=== PATIENT | female | born 1960 | race Caucasian/White ===

== ENCOUNTER 2016-08-11 20:10 | Emergency (ER) | payer BC ==
[~2016-08-11] VITALS: Ht 167.6 cm; Wt 105.5 kg
[~2016-08-11 20:10] MED LIST: ATV5X PO; LORA10TA5 PO; NAPR1TAB9 PO; PRM625 PO; RIZA1TAB11 PO; TPM25 PO; ZLF/100 PO
[2016-08-11 20:12] VITALS: TEMP 36.6; Ht 167.6 cm; Wt 105.5 kg
[2016-08-11] MEDS ORDERED: KETOROLAC TROMETHAMINE 30 MG/ML VIAL IV STA (20:59)
[2016-08-11] MEDS ORDERED: DiphenhydrAMINE HCL 50 MG/ML VIAL IV STA (20:59)
[2016-08-11] MEDS ORDERED: METHYLPREDNISOLONE 125 MG VIAL IV STA (20:59)
[2016-08-11] MEDS ORDERED: DIPH25CA5 PO (21:09)
[2016-08-11] MEDS ORDERED: OPTIRAY 320 IV PRN (21:15)
[2016-08-11 21:20] LABS: BASO % 0.4 %; BASO ABS # 0.03 K/uL (0-0.2); COMPLETE YES; EOS % 11.5 %; HEMATOCRIT 37.7 % (37-47); IG% 0.1 %; LYMPH % 19.1 %; LYMPH ABS # 1.41 K/uL (1.2-3.4); MEAN CELL VOLUME 87.5 fL (80-100); MEAN CORPUSCULAR HEMOGLOBIN 29.2 pg (25-34); MEAN CORPUSCULAR HGB CONC 33.4 g/dl (32-36); MONO % 8.9 %; PLATELET COUNT 218 K/uL (130-400); RED BLOOD COUNT 4.31 M/uL (4.2-5.4); WHITE BLOOD COUNT 7.39 K/uL (4.8-10.8)
[2016-08-11 21:35] LABS: BUN/CREATININE RATIO 24.6 (10-20); CREATININE 0.72 mg/dl (0.60-1.20)
[2016-08-11 21:39] LABS: URINE APPEARANCE TURBID (CLEAR); URINE BILIRUBIN NEG (NEG); URINE COLOR YELLOW; URINE EPITHELIAL CELL AUTO 20-30 /lpf (0-5); URINE NITRITE NEG (NEG); URINE PH 7.5 (4.5-7.5); URINE SPECIFIC GRAVITY 1.019 (1.000-1.030); UROBILINOGEN NEG (NEG)
[2016-08-11 21:40] LABS: MANUAL MICROSCOPIC REQUIRED? NO; REVIEW REQ? NO
--- NOTE | 2016-08-11 22:00 | DIAGNOSTIC IMAGING REPORT ---
CT OF THE HEAD WITHOUT CONTRAST CLINICAL HISTORY: Headache. Preorbital edema. COMPARISON STUDY: MRI of the brain June 25, 2013. TECHNIQUE: Helical axial images of the head were obtained without IV contrast. Automated exposure control was utilized for the study. FINDINGS: No acute intracranial hemorrhage, midline shift or mass effect is present. Ventricular system is normal. Basilar cisterns are patent. There are no extra-axial collections. Veronica-white differentiation is maintained. There are no findings to suggest acute dural sinus thrombosis or acute territorial infarct. There are no calvarial abnormalities. Visualized portions of the sinuses and mastoid air cells are clear. Bilateral periorbital edema is better depicted on the maxillofacial CT. IMPRESSION: No acute intracranial findings. Electronically signed by: Keegan Lee M.D. 08/11/2016 9:59 PM Dictated Date/Time: 08/11/2016 9:55 PM
--- NOTE | 2016-08-11 22:08 | DIAGNOSTIC IMAGING REPORT ---
MAXILLOFACIAL CT WITH CONTRAST CLINICAL HISTORY: Headache with preorbital edema. TECHNIQUE: Helical axial images of the face were obtained following intravenous injection of 99 cc of Optiray 320 IV. Sagittal and coronal reconstructions were viewed. COMPARISON STUDY: MRI of the brain June 25, 2013. FINDINGS: There is mild bilateral periorbital preseptal soft tissue swelling. There is no postseptal component. There is no rim-enhancing fluid collection to suggest an orbit. This extends from the infraorbital region to the forehead. The globes are intact. Sinuses are clear. Major drainage pathways for the sinuses are patent. Mastoid air cells are clear. There are no significant osseous abnormalities. Major vasculature of the upper neck is patent. Epiglottis is normal. Parotid and submandibular glands are normal. Visualized portions of the intracranial contents are unremarkable. The superior ophthalmic veins are not dilated. IMPRESSION: 1. Mild periorbital soft tissue swelling. No postseptal component. No abscess. 2. No significant paranasal sinus disease. Patent major drainage pathways. Electronically signed by: Keegan Lee M.D. 08/11/2016 10:07 PM Dictated Date/Time: 08/11/2016 9:59 PM
[2016-08-11 22:19] LABS: CALCIUM 8.3 mg/dl (8.5-10.1)
[2016-08-11] MEDS ORDERED: PRED50TA PO (23:30)
[2016-08-12 00:04] VITALS: BP 111/67; PULSE 71; O2SAT 98
--- NOTE | 2016-08-12 02:08 | EMERGENCY ROOM VISIT NOTE ---
History Report prepared by Dianaibdebra: Tevin Scott Under the Supervision of: Dr. Forrest Shankar D.O. First contact with patient: 20:31 Chief Complaint: HEADACHE Stated Complaint: HEADACHE,SWELLING AROUND THE EYES History of Present Illness The patient is a 56 year old female who presents to the Emergency Room with complaints of a worsening headache starting earlier this afternoon. She reports the discomfort as a 3/10 in severity. The patient reports that she has a history of migraines starting 20 years ago. She notes that this feels like her typical migraines but not nearly as bad. The patient denies any pain with movement in her eyes. She states that she took an over the counter sinus medication, but denies any relief. The patient states that she went to the bathroom and noticed a swelling between her eyes. She reports that she tried to sleep to relieve her pain but denies any change in symptoms. The patient reports the pain is worsening with breathing. She states that a week ago she had a sore throat and cough but admits it has resolved. The patient states that she started to have rhinorrhea starting yesterday. The patient denies change in vision, fevers, ear pain, ringing in ears, chest pain, shortness of breath, nausea, vomiting, diarrhea, pain with urination, edema to other body parts. Source of History: patient Onset: this afternoon Position: head Symptom Intensity: 3/10 Quality: ache Timing: worsening Modifying Factors (Worsening): breathing Associated Symptoms: + sorethroat, + cough, No fevers Note: The patient admits to rhinorrhea. Review of Systems See HPI for pertinent positives & negatives. A total of 10 systems reviewed and were otherwise negative. Past Medical & Surgical Surgical Problems: (1) H/O: hysterectomy (2) Hx of cholecystectomy Family History Arthritis Diabetes mellitus FH: heart disease FHx: Crohn's disease FHx: gallbladder disease Hypertension Social History Smoking Status: Never Smoker Alcohol Use: occasionally Marital Status: Housing Status: lives with significant other Occupation Status: employed Current/Historical Medications Scheduled Diphenhydramine Hcl (Benadryl), 25 MG PO QPM Estrogens, Conjugated (Premarin), 0.625 MG PO DAILY Naproxen (Aleve), 440 MG PO HS Prednisone (Prednisone), 50 MG PO DAILY Sertraline HCl (Sertraline HCl), 100 MG PO DAILY Topiramate (Topiramate), 50 MG PO HS Scheduled PRN Lorazepam (Lorazepam), 0.5 MG PO DAILY PRN for Anxiety Rizatriptan Benzoate (Rizatriptan Benzoate), 10 MG PO UD PRN for Migraine Allergies Coded Allergies: Penicillins (Verified Allergy, Unknown, 12/14/14) Physical Exam Vital Signs Date Time Temp Pulse Resp B/P (MAP) Pulse Ox O2 Delivery O2 Flow Rate FiO2 08/12/16 00:04 71 16 111/67 98 08/11/16 22:11 60 18 109/77 99 Room Air 08/11/16 20:12 36.6 75 16 130/84 96 Room Air Physical Exam GENERAL: Sitting up in bed, alert, well appearing, well nourished, no distress, non-toxic EYE EXAM: normal conjunctiva, PERRL and EOM's intact. Swelling on bridge of nose. Swelling on proximal portion of upper eyelids. OROPHARYNX: no exudate, no erythema, lips, buccal mucosa, and tongue normal and mucous membranes are moist NECK: supple, no nuchal rigidity, no adenopathy, non-tender, negative Brudzinski LUNGS: Clear to auscultation. Normal chest wall mechanics HEART: no murmurs, S1 normal and S2 normal ABDOMEN: abdomen soft, non-tender, normo-active bowel sounds, no masses, no rebound or guarding. BACK: Back is symmetrical on inspection and there is no deformity, no midline tenderness, no CVA tenderness. SKIN: Multiple small skin ulcers on upper and lower extremities. no bruising UPPER EXTREMITIES: upper extremities are grossly normal. LOWER EXTREMITIES: No pitting edema. NEURO EXAM: Normal sensorium, cranial nerves II-XII intact, normal speech, no weakness of arms, no weakness of legs. No drift. Finger to nose intact. Medical Decision & Procedures ER Provider Diagnostic Interpretation: Radiology results as stated below per my review and the radiologist's interpretation: CT OF THE HEAD WITHOUT CONTRAST CLINICAL HISTORY: Headache. Preorbital edema. COMPARISON STUDY: MRI of the brain June 25, 2013. TECHNIQUE: Helical axial images of the head were obtained without IV contrast. Automated exposure control was utilized for the study. FINDINGS: No acute intracranial hemorrhage, midline shift or mass effect is present. Ventricular system is normal. Basilar cisterns are patent. There are no extra-axial collections. Veronica-white differentiation is maintained. There are no findings to suggest acute dural sinus thrombosis or acute territorial infarct. There are no calvarial abnormalities. Visualized portions of the sinuses and mastoid air cells are clear. Bilateral periorbital edema is better depicted on the maxillofacial CT. IMPRESSION: No acute intracranial findings. Electronically signed by: Keegan Lee M.D. 08/11/2016 9:59 PM Dictated Date/Time: 08/11/2016 9:[address] WITH CONTRAST CLINICAL HISTORY: Headache with preorbital edema. TECHNIQUE: Helical axial images of the face were obtained following intravenous injection of 99 cc of Optiray 320 IV. Sagittal and coronal reconstructions were viewed. COMPARISON STUDY: MRI of the brain June 25, 2013. FINDINGS: There is mild bilateral periorbital preseptal soft tissue swelling. There is no postseptal component. There is no rim-enhancing fluid collection to suggest an orbit. This extends from the infraorbital region to the forehead. The globes are intact. Sinuses are clear. Major drainage pathways for the sinuses are patent. Mastoid air cells are clear. There are no significant osseous abnormalities. Major vasculature of the upper neck is patent. Epiglottis is normal. Parotid and submandibular glands are normal. Visualized portions of the intracranial contents are unremarkable. The superior ophthalmic veins are not dilated. IMPRESSION: 1. Mild periorbital soft tissue swelling. No postseptal component. No abscess. 2. No significant paranasal sinus disease. Patent major drainage pathways. Electronically signed by: Keegan Lee M.D. 08/11/2016 10:07 PM Dictated Date/Time: 08/11/2016 9:59 PM Laboratory Results 08/11/16 21:10 Red Blood Count 4.31, Mean Corpuscular Volume 87.5, Mean Corpuscular Hemoglobin 29.2, Mean Corpuscular Hemoglobin Concent 33.4, Mean Platelet Volume 9.0, Neutrophils (%) (Auto) 60.0, Lymphocytes (%) (Auto) 19.1, Monocytes (%) (Auto) 8.9, Eosinophils (%) (Auto) 11.5, Basophils (%) (Auto) 0.4, Neutrophils # (Auto ) 4.43, Lymphocytes # (Auto) 1.41, Monocytes # (Auto) 0.66, Eosinophils # (Auto ) 0.85, Basophils # (Auto) 0.03 08/11/16 21:10 Test 08/11/16 21:10 08/11/16 21:28 White Blood Count 7.39 K/uL (4.8-10.8) Red Blood Count 4.31 M/uL (4.2-5.4) Hemoglobin 12.6 g/dL (12.0-16.0) Hematocrit 37.7 % (37-47) Mean Corpuscular Volume 87.5 fL (80-100) Mean Corpuscular Hemoglobin 29.2 pg (25-34) Mean Corpuscular Hemoglobin Concent 33.4 g/dl (32-36) Platelet Count 218 K/uL (130-400) Mean Platelet Volume 9.0 fL (7.4-10.4) Neutrophils (%) (Auto) 60.0 % Lymphocytes (%) (Auto) 19.1 % Monocytes (%) (Auto) 8.9 % Eosinophils (%) (Auto) 11.5 % Basophils (%) (Auto) 0.4 % Neutrophils # (Auto) 4.43 K/uL (1.4-6.5) Lymphocytes # (Auto) 1.41 K/uL (1.2-3.4) Monocytes # (Auto) 0.66 K/uL (0.11-0.59) Eosinophils # (Auto) 0.85 K/uL (0-0.5) Basophils # (Auto) 0.03 K/uL (0-0.2) RDW Standard Deviation 41.8 fL (36.4-46.3) RDW Coefficient of Variation 12.9 % (11.5-14.5) Immature Granulocyte % (Auto) 0.1 % Immature Granulocyte # (Auto) 0.01 K/uL (0.00-0.02) Anion Gap 8.0 mmol/L (3-11) Est Creatinine Clear Calc Drug Dose 109.6 ml/min Estimated GFR () 110.0 Estimated GFR (Non- 94.9 BUN/Creatinine Ratio 24.6 (10-20) Calcium Level 8.3 mg/dl (8.5-10.1) Urine Color YELLOW Urine Appearance TURBID (CLEAR) Urine pH 7.5 (4.5-7.5) Urine Specific [place] 1.019 (1.000-1.030) Urine Protein NEG (NEG) Urine Glucose (UA) NEG (NEG) Urine Ketones NEG (NEG) Urine Occult Blood NEG (NEG) Urine Nitrite NEG (NEG) Urine Bilirubin NEG (NEG) Urine Urobilinogen NEG (NEG) Urine Leukocyte Esterase TRACE (NEG) Urine WBC (Auto) 1-5 /hpf (0-5) Urine RBC (Auto) 0-4 /hpf (0-4) Urine Hyaline Casts (Auto) 1-5 /lpf (0-5) Urine Epithelial Cells (Auto) 20-30 /lpf (0-5) Urine Bacteria (Auto) NEG (NEG) Laboratory results per my review. Medications Administered Medications (Trade) Dose Ordered Sig/Miriam Route Start Time Stop Time Status Last Admin Dose Admin Diphenhydramine HCl (Benadryl Inj) 50 mg NOW STAT IV 08/11/16 20:59 08/11/16 21:01 DC 08/11/16 21:20 50 MG Ketorolac Tromethamine (Toradol Inj) 30 mg NOW STAT IV 08/11/16 20:59 08/11/16 21:01 DC 08/11/16 21:20 30 MG Methylprednisolone Sodium Succinate (Solu-Medrol IV) 125 mg NOW STAT IV 08/11/16 20:59 08/11/16 21:01 DC 08/11/16 21:20 125 MG ED Course ED COURSE: Vital signs were reviewed and showed hypertension. The patients medical record was reviewed The above diagnostic studies were performed and reviewed. ED treatments and interventions as stated above. 2034: The patient was evaluated in room A02. A complete history and physical examination was performed. 2058: Solu-Medrol IV 125 mg IV, Toradol Injection 30 mg IV, Benadryl Injection 50 mg IV. 2114: Ioversol 100 ml IV. 0000: Upon reevaluation, the patient is feeling better. I discussed the findings and the treatment plan with the patient. She verbalizes agreement and understanding. She was discharged home. Medical Decision Differential Diagnosis includes but is not limited to headache, tension headache , cluster headache, migraine, subarachnoid hemorrhage, meningitis, mass, central venous thrombus, concussion, trauma and epidural/subdural hemorrhage. Patient is a 56-year-old female who presents the ER for swelling in the pre- orbital region which started earlier today. She also admits to a headache which feels exactly like her previous migraines but not nearly as bad. No fevers. Negative Brudzinski. No signs of meningitis or encephalitis on exam. Headache came on gradually. Not suggestive of a bleed. No trauma. She does have periorbital swelling. There is no signs of cellulitis. No signs of infection. No pain with movement of the eye. Vision is intact. CT of the head and face was unremarkable. Patient was given steroids, Benadryl and famotidine. She did have improvement in the swelling. I do not believe this to be a septal or preseptal cellulitis. There is no signs of infection. I felt it was reasonable to discharge her on steroids and have her follow-up with her primary care doctor. Discussed with Pt concerning signs and symptoms to watch out for. Pt was instructed to follow up with their PCP and discussed with the patient their option to return to the ED at anytime for persistent or worsening symptoms. The appropriate anticipatory guidance and out-patient management, including indications for return to the emergency department, were explained at length to the patient and understood. Impression Primary Impression: Periorbital edema Additional Impression: Migraine Scribe Attestation The scribe's documentation has been prepared under my direction and personally reviewed by me in its entirety. I confirm that the note above accurately reflects all work, treatment, procedures, and medical decision making performed by me. Departure Information Dispostion Home / Self-Care Prescriptions Prednisone (PREDNISONE) 50 Mg Tab 50 MG PO DAILY for 2 Days, #2 TAB Prov: Forrest Shankar, DO 08/11/16 Referrals Sb Jin M.D. (PCP) Forms HOME CARE DOCUMENTATION FORM, IMPORTANT VISIT INFORMATION Patient Instructions My [facility] Additional Instructions Please follow up with your primary care doctor with in the next 24 hours. Any worsening of your symptoms, please return to the ED immediately. This includes pain with movement of your eyes, redness over the swelling, change in vision, fevers greater than 100.4, or any other concerning signs or symptoms from your standpoint. Please take Benadryl 50 mg every 6-8 hours as needed. Please take steroids as prescribed the next 2 days. Problem Qualifiers Additional Impression: Migraine Migraine type: unspecified Status migrainosus presence: without status migrainosus Intractability: not intractable Qualified Codes: G43.909 - Migraine, unspecified, not intractable, without status migrainosus
== END 2016-08-12 00:05 | disposition home or self-care (01) ==
LOC: C.EDB 20:11 → C.EDA 08-12 00:05
DX: H05.229 Edema of unspecified orbit (principal); G43.909 Migraine, unspecified, not intractable, without status migrainosus; Z90.710 Acquired absence of both cervix and uterus; Z90.49 Acquired absence of other specified parts of digestive tract; Z79.899 Other long term (current) drug therapy; Z88.0 Allergy status to penicillin; Z83.3 Family history of diabetes mellitus; Z82.49 Family history of ischemic heart disease and other diseases of the circulatory system; Z83.79 Family history of other diseases of the digestive system

== ENCOUNTER → 2017-07-04 | Outpatient (CLI) | payer BC ==
[~2017-07-04] MED LIST changes: +DIPH25CA5 PO; -LORA10TA5 PO
== END | disposition home or self-care (01) ==
LOC: C.LABBFT 16:37
PROVIDERS: ATTEND Internal Medicine
DX: R23.8 Other skin changes (principal)

== ENCOUNTER → 2017-07-10 | Outpatient (CLI) | payer BC ==
[2017-07-10 12:09] LABS: BASO % 0.4 %; BASO ABS # 0.02 K/uL (0-0.2); EOS % 4.4 %; EOS ABS # 0.23 K/uL (0-0.5); HEMOGLOBIN 12.7 g/dL (12.0-16.0); IG# 0.01 K/uL (0.00-0.02); LYMPH % 21.3 %; LYMPH ABS # 1.11 K/uL (1.2-3.4); MEAN CELL VOLUME 86.2 fL (80-100); MEAN CORPUSCULAR HEMOGLOBIN 28.8 pg (25-34); MEAN CORPUSCULAR HGB CONC 33.4 g/dl (32-36); MEAN PLATELET VOLUME 9.7 fL (7.4-10.4); MONO % 8.8 %; MONO ABS # 0.46 K/uL (0.11-0.59); NEUT % 64.9 %; NEUT ABS # 3.38 K/uL (1.4-6.5); PLATELET COUNT 255 K/uL (130-400); RED CELL DISTRIBUTION WIDTH CV 13.3 % (11.5-14.5); RED CELL DISTRIBUTION WIDTH SD 41.9 fL (36.4-46.3); WHITE BLOOD COUNT 5.21 K/uL (4.8-10.8)
[2017-07-10 12:20] LABS: ALBUMIN 4.3 gm/dl (3.4-5.0); AST/SGOT 14 U/L (15-37); BLOOD UREA NITROGEN 19 mg/dl (7-18); CARBON DIOXIDE 27 mmol/L (21-32); CREATININE 1.01 mg/dl (0.60-1.20); GLUCOSE 89 mg/dl (70-99); SODIUM 140 mmol/L (136-145); URIC ACID 4.2 mg/dl (2.6-7.2)
[2017-07-10 12:27] LABS: ALKALINE PHOSPHATASE 105 U/L (45-117); ALT/SGPT 18 U/L (12-78); CHOLESTEROL 157 mg/dl (0-200); LDL CHOLESTEROL CALCULATED 82 mg/dl; TOTAL PROTEIN 7.4 gm/dl (6.4-8.2)
[2017-07-11 14:51] LABS: ANA SCREEN TC 249X POSITIVE (NEGATIVE)
== END | disposition home or self-care (01) ==
LOC: C.LABBFT 07:29
PROVIDERS: ATTEND Physician Assistant Medical
DX: M25.50 Pain in unspecified joint (principal); Z13.6 Encounter for screening for cardiovascular disorders

== ENCOUNTER 2022-10-27 12:03 | Inpatient (IN) ==
[2022-10-27] MEDS ORDERED: SODIUM CHLORIDE 0.9% 1000ML 1,000 ML IV STA (12:37)
[2022-10-27] MEDS ORDERED: fentaNYL citrate PF 100 MCG/2 ML VIAL IV STA ×2 (12:37→17:24)
--- NOTE | 2022-10-27 12:41 | Emergency Department Note ---
Impression & Plan Calculus of distal left ureter, Hydronephrosis of left kidney ED Provider Note HISTORY OF PRESENT ILLNESS: Patient is a 62-year-old female presenting with bilateral lower quadrant and suprapubic abdominal pain. Patient reports symptoms started last evening. States the pain has been constant since onset, but waxes and wanes in intensity. She reports that the when the pain is most intense she becomes nauseous but she has not vomiting. Denies any fevers. Reports an abdominal surgical history of a hysterectomy and cholecystectomy. Denies any dysuria or hematuria. Denies a ny diarrhea. ROS: as above PHYSICAL EXAM: Constitutional: Patient appears in no acute distress. HENT: Head: Normocephalic and atraumatic. Eyes: EOMI, PERRL Mouth/Throat: Mucous membranes moist. Neck: Trachea midline. Neck supple. Cardiovascular: RRR, No murmurs, rubs or gallops. Intact distal pulses. Pulmonary/Chest: No respiratory distress. Breath sounds clear and equal bilaterally. No wheezes or rales. Abdominal: Abdomen soft, no rebound or guarding. Right lower quadrant tenderness to palpation Musculoskeletal: No edema, tenderness or deformity noted. Skin: Warm and dry. No rash, erythema, pallor or cyanosis Psychiatric: Appropriate mood and affect for situation. Neurological: Alert and keenly responsive. CN II-XII grossly intact, moving all extremities equally and fully. MDM: - Vitals signs stable - History obtained via patient. Patient presents with lower quadrant and suprapubic abdominal pain. Patient reports symptoms started last evening. Pain has been constant in onset and waxes and wanes in intensity. She states she gets associated nausea but no vomiting. Denies any diarrhea. Denies any fevers. - Chronic conditions affecting care: Cervical cancer; previous kidney stones - Differential diagnoses include, but are not limited to: aortic aneurysm; diverticulitis; ureteral calculi; UTI - Order placed for continuous cardiac monitoring. At this time, monitor showed rate of 60 bpm with normal sinus rhythm, per my interpretation. - External medical records reviewed. - Laboratory workup interpreted by myself showed normal WBC; stable electrolytes - CT abdomen/pelvis with IV contrast showed an obstructing 7 mm stone in the distal left ureter with mild left hydronephrosis. Also noted to have a 2.4 cm calculus in the left renal pelvis. - Discussed case with urologist on-call, Dr. Sosa. He reports that the patient will need interventions for her 7 mm meter stone if pain cannot be well controlled. -Patient was initially given 50 mcg of IV fentanyl in the ER with return of her symptoms. She was given an additional 50 mcg of IV fentanyl. - Discussed treatment options with patient, including discharge with oral therapies for a trial of stone passage versus admission for urological procedures, per urology's recommendation. Patient would like to be admitted given her continued pain. - UA negative for bacteria, but noted to have positive leukocyte esterase and white blood cells. Given 1 g IV Rocephin in ER. - Discussion was had with social media campaign manager about patient's case and need for admission - Hospitalist consulted for admission - [facility] and [facility] ASSESSMENT AND PLAN: Diagnosis: Left ureteral stone; left-sided hydronephrosis Plan: Admit Past Med/Surg History Medical History (Updated 10/27/22 @ 17:59 by Patricia Sanchez MD) Acute medial meniscus tear of left knee Cervical cancer HX OF 1993/ HYSTERECTOMY Depression Family history of reaction to anesthesia BROTHER & SISTER - N/V History of kidney stones DX JAN 2020 - SOME REMAIN/ NO CURRENT PROBLEMS WITH Knee effusion, left Knee osteoarthritis Migraines Surgical History History of section History of colonoscopy History of hysterectomy Hx of cholecystectomy Family History Mother Breast cancer Family/Other Rheumatoid arthritis Arthritis Crohn's disease Grandmother (Paternal) Rheumatoid arthritis Colorectal cancer Father Migraine Sister Rheumatoid arthritis Aunt Diabetes Social History Smoking Status: Never smoker Do You Dip or Chew Tobacco: No; Hx Alcohol Use: Yes Alcohol type: wine and hard liquor Hx Substance Use: No Preferred Language: Cambodian Communication Ability: Effective Signal And Communications Maintainer Required: No Beliefs That Will Affect Care: None marital status: Current Living Situation: Spouse and Family Current Living Situation Comment: SON, AND FATHER current occupational status: employed Feels Safe at Home: Yes Assistive Devices: Brace/Splint/Immobilizer and Glasses Allergies Allergies Allergy/AdvReac Type Severity Reaction Status Date / Time Penicillins Allergy Unknown Hives Verified 08/26/20 09:49 Home Meds Home Medications Medication Instructions Recorded Confirmed multivitamin 1 tab PO DAILY 03/29/19 10/27/22 rizatriptan 10 mg disintegrating 10 mg PO UD PRN migraine headache 03/31/20 10/27/22 tablet Previous Rx's Medication Instructions Recorded topiramate 25 mg tablet 25 mg PO DAILY #90 tabs 06/07/20 sertraline 100 mg tablet 100 mg PO QPM #90 tabs 12/20/20 Results & Data (ED) Vital Signs Vital Signs - 24 hr 10/27/22 12:10 10/27/22 13:04 10/27/22 15:00 Temperature 36.2 C L Temperature Source Temporal Artery Scan Pulse Rate 79 Pulse Rate [Finger] 52 L Pulse Rhythm Regular Pulse Rhythm [Finger] Pulse Strength Normal Pulse Strength [Finger] Respiratory Rate 18 16 Respiratory Effort / Characteristics Non-Labored Spontaneous Respiratory Depth Normal Respiratory Pattern Blood Pressure 130/85 Blood Pressure Mean 100 Blood Pressure Position Sitting Pulse Oximetry 98 95 96 Oxygen Delivery Method Room Air Room Air Room Air Sepsis Recent Fever Within 48 Hours No Sepsis New/Unexplained Change in Mental Status No Sepsis Action Taken by Nursing No Action Required 10/27/22 18:00 Temperature Temperature Source Pulse Rate Pulse Rate [Finger] 54 L Pulse Rhythm Pulse Rhythm [Finger] Regular Pulse Strength Pulse Strength [Finger] Normal Respiratory Rate 18 Respiratory Effort / Characteristics Non-Labored Respiratory Depth Normal Respiratory Pattern Regular Blood Pressure Blood Pressure Mean Blood Pressure Position Pulse Oximetry 95 Oxygen Delivery Method Room Air Sepsis Recent Fever Within 48 Hours Sepsis New/Unexplained Change in Mental Status Sepsis Action Taken by Nursing Laboratory Data 10/27/22 12:33 10/27/22 12:33 Lab Results 10/27/22 10/27/22 10/27/22 Range/Units 12:33 12:33 12:46 WBC 6.09 (4.8-10.8) K/ul RBC 4.21 (4.20-5.40) M/uL Hgb 12.3 (12.0-16.0) g/dl Hct 36.6 L (37.0-47.0) % MCV 86.9 (80.0-100.0) fL MCH 29.2 (25.0-34.0) pg MCHC 33.6 (32.0-36.0) g/dL RDW Std Deviation 40.6 (36.4-46.3) fL RDW Coeff of [place] 12.9 (11.5-14.5) % Plt Count 212 (130-400) K/uL MPV 10.2 (9.4-12.4) fL Immature Gran % (Auto) 0.5 % Neut % (Auto) 64.4 % Lymph % (Auto) 21.7 % [place] % (Auto) 7.2 % Eos % (Auto) 5.4 % Baso % (Auto) 0.8 % Neut # (Auto) 3.92 (1.40-6.50) K/uL Lymph # (Auto) 1.32 (1.20-3.40) K/uL [place]field # (Auto) 0.44 (0.11-0.59) K/uL Eos # (Auto) 0.33 (0.00-0.50) K/uL Baso # (Auto) 0.05 (0.00-0.20) K/uL Immature Gran # (Auto) 0.03 (0.01-0.20) K/uL Sodium 140 (136-145) mmol/L Potassium 3.9 (3.5-5.1) mmol/L Chloride 107 (98-107) mmol/L Carbon Dioxide 26 (21-32) mmol/L Anion Gap 7 (3-11) BUN 19 (6-23) mg/dl Creatinine 0.63 (0.6-1.2) mg/dl Est Cr Clr Drug Dosing 111.2 ml/min Est GFR ( Amer) 113.0 ml/min Est GFR (Non-Af Amer) 97.5 ml/min BUN/Creatinine Ratio 30.2 H (10-20) Glucose 100 H (70-99(Fasting)) mg/dl Calcium 9.2 (8.6-10.3) mg/dl Total Bilirubin 0.4 (0.2-1.0) mg/dl AST 15 (13-39) U/L ALT 10 (7-52) U/L Alkaline Phosphatase 77 (34-104) U/L Total Protein 6.9 (6.0-8.3) gm/dl Albumin 4.1 (3.4-5.0) gm/dl Globulin 2.8 (2.5-4.0) gm/dl Albumin/Globulin Ratio 1.5 (0.9-2) Lipase 10 L (11-82) U/L Urine Color Yellow Urine Appearance Turbid A (Clear) Urine pH 8.0 H (4.5-7.5) Ur Specific [place] 1.012 (1.000-1.030) Urine Protein Negative (Negative) Urine Glucose (UA) Negative (Negative) Urine Ketones Negative (Negative) Urine Blood 3+ H (Negative) Urine Nitrite Negative (Negative) Urine Bilirubin Negative (Negative) Urine Urobilinogen Negative (Negative) Ur Leukocyte Esterase 2+ H (Negative) Urine WBC (Auto) 5-10 H (0-5) /hpf Urine RBC (Auto) >30 H (0-4) /hpf U Hyaline Cast (Auto) 1-5 (0-5) /lpf U Epithel Cells (Auto) 5-10 H (0-5) /lpf Urine Bacteria (Auto) Negative (Negative) Administered Medications Discontinued Medications Fentanyl Citrate (Fentanyl Citrate Pf 100 Mcg/2 Ml Vial) 50 mcg IV NOW STA Stop: 10/27/22 12:38 Last Admin: 10/27/22 12:42 Dose: 50 mcg Documented By: RICHIE Fentanyl Citrate (Fentanyl Citrate Pf 100 Mcg/2 Ml Vial) 50 mcg IV NOW STA Stop: 10/27/22 17:25 Last Admin: 10/27/22 17:30 Dose: 50 mcg Documented By: HONORIO Sodium Chloride (Nss 1000ml) 1,000 mls @ 999 mls/hr IV .Q1H1M STA Stop: 10/27/22 13:37 Last Infusion: 10/27/22 13:43 Dose: 0 mls/hr Documented By: Admin: 10/27/22 12:43 Dose: 999 mls/hr Documented By: RICHIE Ioversol (Optiray 320 100ml) 91 ml IV ONCE ONE Stop: 10/27/22 14:22 Last Admin: 10/27/22 14:21 Dose: 91 ml Documented By: EDK Imaging Data Radiologist's Impression: Abdomen/Pelvis CT 10/27/22 12:37 CT SCAN OF THE ABDOMEN AND PELVIS WITH IV CONTRAST CLINICAL HISTORY: Right lower quadrant abdominal pain. COMPARISON STUDY: No priors. TECHNIQUE: Following the IV administration of 91 cc of Optiray 320, CT scan of the abdomen and pelvis is performed from the lung bases to the proximal femora. Images are reviewed in the axial, sagittal, and coronal planes. IV contrast was administered without complication. A dose lowering technique was utilized adher ing to the principles of ALARA. CT DOSE: 1279.55 mGy.cm FINDINGS: Lung bases: The heart is normal in size and without pericardial effusion. The lung bases are clear noting dependent atelectasis. Liver: The contrast-enhanced liver is normal in size, contour, and attenuation. There is minimal central intrahepatic biliary ductal dilatation. The hepatic veins and portal veins are patent. Gallbladder: Surgically absent noting clips in the gallbladder fossa. Spleen: Normal in size and attenuation. Pancreas: Unremarkable. Adrenal glands: Unremarkable. Kidneys: The contrast enhanced kidneys are normal in size. There are obstructing calculi in the distal left ureter at the level of the pelvic inlet seen on image #234. These measure up to 7 mm in aggregate dimension and cause mild left hydroureteronephrosis. There is a 2.4 cm calculus in the left renal pelvis ext ending into the left lower pole collecting system. There are numerous additional nonobstructing left renal calculi which measure up to 9 mm. There are numerous tiny nonobstructing right renal calculi which measure up to 3 mm. No right ureteral stone is seen and there is no right-sided hydronephrosis. There is slightly diminished enhancement of the left kidney as compared to the right. Abdominal vasculature: The abdominal aorta is normal in course and caliber. Bowel: There is no bowel obstruction. The appendix is well-visualized and normal. Peritoneum: There is no intraperitoneal free air or abdominal ascites. There is a small fat-containing hernia. Lymphadenopathy: None. Pelvic viscera: The bladder is decompressed and the wall appears thickened. The uterus is surgically absent. No adnexal lesion is seen. There is trace free fluid in the posterior pelvis. Skeletal structures: The skeletal structures are osteopenic. There is mild l umbosacral spondylosis. No lytic or blastic lesions are seen. IMPRESSION: 1. There are obstructing calculi in the distal left ureter at the level of the pelvic inlet. These measure up to 7 mm in aggregate dimension and cause mild left hydroureteronephrosis. 2. There is a 2.4 cm calculus in the left renal pelvis which extends into the left lower pole collecting system. 3. Numerous additional nonobstructing bilateral renal calculi as above. 4. Enhancement of the left kidney is slightly diminished as compared to the right, likely related to obstruction/hydronephrosis. Correlate with clinical findings and urinalysis to assess for superimposed urinary tract infection. 5. The bladder is decompressed and appears thick-walled. Again, correlate with clinical findings and urinalysis. 6. Normal appendix. 7. Additional findings as above. ACT 112: Negative or not required by law. Electronically signed by: Ambrocio Haddad M.D. 10/27/2022 2:32 PM Discharge Plan Visit Data Chief Complaint: Abdominal Pain Stated Complaint: ABDOMINAL PAIN ED Provider: Patricia Sanchez Discharge Problem: Calculus of distal left ureter, Hydronephrosis of left kidney Forms Stand Alone Forms: [employer] Prescriptions Prescriptions: No Action topiramate 25 mg tablet 25 mg PO DAILY Qty: 90 3RF sertraline 100 mg tablet 100 mg PO QPM Qty: 90 1RF multivitamin Tablet 1 tab PO DAILY rizatriptan 10 mg tablet,disintegrating 10 mg PO UD MDD 3 tablets in 24 hours PRN (Reason: migraine headache) Referrals Referrals: Sb Jin III, MD [Physician] -
[2022-10-27 12:57] LABS: Basophils # (auto) 0.05 K/uL (0.00-0.20); Basophils % (auto) 0.8 %; Eosinophils # (auto) 0.33 K/uL (0.00-0.50); Eosinophils % (auto) 5.4 %; Hematocrit (blood only) 36.6 % (37.0-47.0); Hemoglobin 12.3 g/dl (12.0-16.0); Immature Granulocytes # (auto) 0.03 K/uL (0.01-0.20); Immature Granulocytes % (auto) 0.5 %; Lymphocytes # (auto) 1.32 K/uL (1.20-3.40); Lymphocytes % (auto) 21.7 %; Mean Corpuscular Hemoglobin 29.2 pg (25.0-34.0); Mean Corpuscular Hgb Conc 33.6 g/dL (32.0-36.0); Mean Corpuscular Volume 86.9 fL (80.0-100.0); Mean Platelet Volume 10.2 fL (9.4-12.4); Monocytes # (auto) 0.44 K/uL (0.11-0.59); Monocytes % (auto) 7.2 %; Neutrophils # (auto) 3.92 K/uL (1.40-6.50); Neutrophils % (auto) 64.4 %; Platelet Count 212 K/uL (130-400); RDW Coefficient of Variation 12.9 % (11.5-14.5); RDW Standard Deviation 40.6 fL (36.4-46.3); Red Blood Count 4.21 M/uL (4.20-5.40); White Blood Count 6.09 K/ul (4.8-10.8)
[2022-10-27 13:05] LABS: Appearance Urine Turbid (Clear); Bacteria Urine Automated Negative (Negative); Bilirubin Urine Negative (Negative); Blood Urine 3+ (Negative); Color Urine Yellow; Glucose Urine UA Negative (Negative); Ketones Urine Negative (Negative); Leukocyte Esterase Urine 2+ (Negative); Nitrite Urine Negative (Negative); Protein Urine Negative (Negative); RBC Urine Automated >30 /hpf (0-4); Specific Gravity Urine 1.012 (1.000-1.030); Urobilinogen Urine Negative (Negative)
[2022-10-27 13:16] LABS: Albumin Globulin Ratio 1.5 (0.9-2); Albumin Level 4.1 gm/dl (3.4-5.0); BUN Creatinine Ratio 30.2 (10-20); Bilirubin,Total 0.4 mg/dl (0.2-1.0); Calcium 9.2 mg/dl (8.6-10.3); Creatinine Clr Calc Pharmacy 111.2 ml/min; Est GFR (Non-African American) 97.5 ml/min; Globulin 2.8 gm/dl (2.5-4.0); Potassium 3.9 mmol/L (3.5-5.1); Total Protein 6.9 gm/dl (6.0-8.3)
[2022-10-27] MEDS ORDERED: OPTIRAY 320 100ml IV ONE (14:21)
--- NOTE | 2022-10-27 14:34 | CT Scan Report ---
CT SCAN OF THE ABDOMEN AND PELVIS WITH IV CONTRAST CLINICAL HISTORY: Right lower quadrant abdominal pain. COMPARISON STUDY: No priors. TECHNIQUE: Following the IV administration of 91 cc of Optiray 320, CT scan of the abdomen and pelvi s is performed from the lung bases to the proximal femora. Images are reviewed in the axial, sagittal , and coronal planes. IV contrast was administered without complication. A dose lowering technique wa s utilized adhering to the principles of ALARA. CT DOSE: 1279.55 mGy.cm FINDINGS: Lung bases: The heart is normal in size and without pericardial effusion. The lung bases are clear no ting dependent atelectasis. Liver: The contrast-enhanced liver is normal in size, contour, and attenuation. There is minimal cent ral intrahepatic biliary ductal dilatation. The hepatic veins and portal veins are patent. Gallbladder: Surgically absent noting clips in the gallbladder fossa. Spleen: Normal in size and attenuation. Pancreas: Unremarkable. Adrenal glands: Unremarkable. Kidneys: The contrast enhanced kidneys are normal in size. There are obstructing calculi in the dista l left ureter at the level of the pelvic inlet seen on image #234. These measure up to 7 mm in aggreg ate dimension and cause mild left hydroureteronephrosis. There is a 2.4 cm calculus in the left renal pelvis extending into the left lower pole collecting system. There are numerous additional nonobstru cting left renal calculi which measure up to 9 mm. There are numerous tiny nonobstructing right renal calculi which measure up to 3 mm. No right ureteral stone is seen and there is no right-sided hydron ephrosis. There is slightly diminished enhancement of the left kidney as compared to the right. Abdominal vasculature: The abdominal aorta is normal in course and caliber. Bowel: There is no bowel obstruction. The appendix is well-visualized and normal. Peritoneum: There is no intraperitoneal free air or abdominal ascites. There is a small fat-containin g hernia. Lymphadenopathy: None. Pelvic viscera: The bladder is decompressed and the wall appears thickened. The uterus is surgically absent. No adnexal lesion is seen. There is trace free fluid in the posterior pelvis. Skeletal structures: The skeletal structures are osteopenic. There is mild lumbosacral spondylosis. N o lytic or blastic lesions are seen. IMPRESSION: 1. There are obstructing calculi in the distal left ureter at the level of the pelvic inlet. These me asure up to 7 mm in aggregate dimension and cause mild left hydroureteronephrosis. 2. There is a 2.4 cm calculus in the left renal pelvis which extends into the left lower pole collect ing system. 3. Numerous additional nonobstructing bilateral renal calculi as above. 4. Enhancement of the left kidney is slightly diminished as compared to the right, likely related to obstruction/hydronephrosis. Correlate with clinical findings and urinalysis to assess for superimpose d urinary tract infection. 5. The bladder is decompressed and appears thick-walled. Again, correlate with clinical findings and urinalysis. 6. Normal appendix. 7. Additional findings as above. ACT 112: Negative or not required by law. Electronically signed by: Ambrocio Haddad M.D. 10/27/2022 2:32 PM
--- NOTE | 2022-10-27 18:13 | History & Physical Report ---
Date of Service October 27, 2022 Assessment & Plan (1) Calculus of distal left ureter: (2) Hydronephrosis of left kidney: (3) Abdominal pain: Plan: Patient is 62-year-old female with PMH migraine, depression, kidney stones presented to ER with complaint of abdominal pain x 1 day and hematuria noted 2 days ago In ER vitals stable, afebrile, no leukocytosis, BUN: 19, Cr: 0.6, UA: 3+ blood, 2+ leuk esterase, 5-10 WBC,> 30 RBC, 5-10 epithelial, negative bacteria CT abdomen pelvis: 1. There are obstructing calculi in the distal left ureter at the level of the pelvic inlet. These measure up to 7 mm in aggregate dimension and cause mild left hydroureteronephrosis. 2. There is a 2.4 cm calculus in the left renal pelvis which extends into the left lower pole collecting system. 3. Numerous additional nonobstructing bilateral renal calculi as above. 4. Enhancement of the left kidney is slightly diminished as compared to the right, likely related to obstruction/hydronephrosis. Correlate with clinical findings and urinalysis to assess for superimposed urinary tract infection. 5. The bladder is decompressed and appears thick-walled. Again, correlate with clinical findings and urinalysis. 6. Normal appendix. In ER given 1 L NSS, fentanyl with improvement in pain Strain all urine Start Cipro for possible UTI Flomax Toradol, Dilaudid as needed pain N.p.o. midnight Urology consult, ER physician spoke to Dr. Sosa who recommended patient be n.p.o. midnight for possible procedure in morning CBC, BMP in a.m. (4) Migraine: Plan: History of migraine. No current symptoms Continue topiramate (5) Depression: Plan: Stable Continue sertraline DVT Prophylaxis SCDs Full Code as per discussion with pt Follows with Dr Franck Alfaro in [place] for routine care Pt was seen and care coordinated with Dr Dudley. See addendum History of Present Illness Chief Complaint: abdominal pain Primary Care Provider: Franck Alfaro Patient is 62-year-old female with PMH migraine, depression, kidney stones presented to ER with complaint of abdominal pain x 1 day. 2 days ago thought had some blood in urine. Started increasing fluids and hasn't noticed any other hematuria since. Yesterday started with lower abdominal cramping. Today had some aching in lower back also. Today increased abdominal pain and cramping. Denies dysuria, urinary frequency, urinary retention, fever/chills, diaphoresis, N/V/D/C, MAYO, dizziness, CP, SOB, weakness, extremity edema, rashes. Allergies Allergy/AdvReac Type Severity Reaction Status Date / Time Penicillins Allergy Unknown Hives Verified 08/26/20 09:49 Home Medications Medication Instructions Recorded Confirmed Type multivitamin 1 tab PO DAILY 03/29/19 10/27/22 History rizatriptan 10 mg disintegrating 10 mg PO UD PRN migraine headache 03/31/20 10/27/22 History tablet topiramate 25 mg tablet 25 mg PO DAILY #90 tabs 06/07/20 10/27/22 Rx sertraline 100 mg tablet 100 mg PO QPM #90 tabs 12/20/20 10/27/22 Rx Past Med/Surg History Medical History (Updated 10/27/22 @ 18:52 by Asmita Swartz PA-C) Acute medial meniscus tear of left knee Cervical cancer HX OF 1993/ HYSTERECTOMY Depression Family history of reaction to anesthesia BROTHER & SISTER - N/V History of kidney stones DX JAN 2020 - SOME REMAIN/ NO CURRENT PROBLEMS WITH Knee effusion, left Knee osteoarthritis Migraines Surgical History History of section History of colonoscopy History of hysterectomy Hx of cholecystectomy Family History Mother Breast cancer Uterine cancer Family/Other Rheumatoid arthritis Arthritis Crohn's disease Grandmother (Paternal) Rheumatoid arthritis Colorectal cancer Father Migraine Sister Rheumatoid arthritis Aunt Diabetes Social History Smoking Status: Never smoker Do You Dip or Chew Tobacco: No; Hx Alcohol Use: Yes Alcohol type: wine and hard liquor Hx Substance Use: Yes Non-Prescribed Medications: Marijuana Preferred Language: Yakut Communication Ability: Effective Email Production Specialist Required: No Beliefs That Will Affect Care: None marital status: Current Living Situation: Spouse and Family Current Living Situation Comment: SON, AND FATHER current occupational status: employed Feels Safe at Home: Yes Assistive Devices: Brace/Splint/Immobilizer and Glasses Review of Systems Review of Systems: All systems reviewed & are unremarkable except as noted in HPI & below Physical Exam Physical Exam: General: no distress, overweight Head: normocephalic, atraumatic Eyes: conjunctiva non-injected, anicteric ENT: normal inspection external ears, nose, mucous membranes moist Neck: supple, trachea midline Lungs: clear, no respiratory distress, no wheezing/rhonchi/rales CV: RRR, no murmur, no pretibial edema Abd: normal BS, soft, mild tenderness to palpation suprapubic region, +left CVA tenderness to percussion Ext: no cyanosis, no calf tenderness Neuro: A&O x 3, no focal deficits noted, normal affect Skin: warm, dry Results & Data Results & Data Vital Signs (Past 12 Hours) Vital Signs Temp Pulse Pulse Resp BP Pulse Ox O2 Del Method 10/27/22 18:00 54 L 18 95 Room Air 10/27/22 15:00 96 Room Air 10/27/22 13:04 52 L 16 95 Room Air 10/27/22 12:10 36.2 C L 79 18 130/85 98 Room Air Laboratory Results Short CBC 10/27/22 Range/Units 12:33 WBC 6.09 (4.8-10.8) K/ul Hgb 12.3 (12.0-16.0) g/dl Hct 36.6 L (37.0-47.0) % Plt Count 212 (130-400) K/uL BMP 10/27/22 12:33 Sodium 140 Potassium 3.9 Chloride 107 Carbon Dioxide 26 BUN 19 Creatinine 0.63 Glucose 100 H Calcium 9.2 Liver Function 10/27/22 Range/Units 12:33 Total Bilirubin 0.4 (0.2-1.0) mg/dl AST 15 (13-39) U/L ALT 10 (7-52) U/L Alkaline Phosphatase 77 (34-104) U/L Albumin 4.1 (3.4-5.0) gm/dl Urine 10/27/22 Range/Units 12:46 Urine Color Yellow Urine Appearance Turbid A (Clear) Urine pH 8.0 H (4.5-7.5) Ur Specific [place] 1.012 (1.000-1.030) Urine Protein Negative (Negative) Urine Glucose (UA) Negative (Negative) Diagnostic Findings Abdomen/Pelvis CT 10/27/22 12:37 CT SCAN OF THE ABDOMEN AND PELVIS WITH IV CONTRAST CLINICAL HISTORY: Right lower quadrant abdominal pain. COMPARISON STUDY: No priors. TECHNIQUE: Following the IV administration of 91 cc of Optiray 320, CT scan of the abdomen and pelvis is performed from the lung bases to the proximal femora. Images are reviewed in the axial, sagittal, and coronal planes. IV contrast was administered without complication. A dose lowering technique was utilized adhering to the principles of ALARA. CT DOSE: 1279.55 mGy.cm FINDINGS: Lung bases: The heart is normal in size and without pericardial effusion. The lung bases are clear noting dependent atelectasis. Liver: The contrast-enhanced liver is normal in size, contour, and attenuation. There is minimal central intrahepatic biliary ductal dilatation. The hepatic veins and portal veins are patent. Gallbladder: Surgically absent noting clips in the gallbladder fossa. Spleen: Normal in size and attenuation. Pancreas: Unremarkable. Adrenal glands: Unremarkable. Kidneys: The contrast enhanced kidneys are normal in size. There are obstructing calculi in the distal left ureter at the level of the pelvic inlet seen on image #234. These measure up to 7 mm in aggregate dimension and cause mild left hydroureteronephrosis. There is a 2.4 cm calculus in the left renal pelvis extending into the left lower pole collecting system. There are numerous ad ditional nonobstructing left renal calculi which measure up to 9 mm. There are numerous tiny nonobstructing right renal calculi which measure up to 3 mm. No right ureteral stone is seen and there is no right-sided hydronephrosis. There is slightly diminished enhancement of the left kidney as compared to the right. Abdominal vasculature: The abdominal aorta is normal in course and caliber. Bowel: There is no bowel obstruction. The appendix is well-visualized and normal. Peritoneum: There is no intraperitoneal free air or abdominal ascites. There is a small fat-containing hernia. Lymphadenopathy: None. Pelvic viscera: The bladder is decompressed and the wall appears thickened. The uterus is surgically absent. No adnexal lesion is seen. There is trace free fluid in the posterior pelvis. Skeletal structures: The skeletal structures are osteopenic. There is mild lumbosacral spondylosis. No lytic or blastic lesions are seen. IMPRESSION: 1. There are obstructing calculi in the distal left ureter at the level of the pelvic inlet. These measure up to 7 mm in aggregate dimension and cause mild left hydroureteronephrosis. 2. There is a 2.4 cm calculus in the left renal pelvis which extends into the left lower pole collecting system. 3. Numerous additional nonobstructing bilateral renal calculi as above. 4. Enhancement of the left kidney is slightly diminished as compared to the right, likely related to obstruction/hydronephrosis. Correlate with clinical findings and urinalysis to assess for superimposed urinary tract infection. 5. The bladder is decompressed and appears thick-walled. Again, correlate with clinical findings and urinalysis. 6. Normal appendix. 7. Additional findings as above. ACT 112: Negative or not required by law. Electronically signed by: Ambrocio Haddad M.D. 10/27/2022 2:32 PM Supervising Physician Co-Signing Physician Notes Pt is a 62 y/o F with hx of Cervical cancer s/p hysterectomy, Kidney stone, migraine and anxiety admitted for obstructing L nephrolithiasis. PE: NAD, well developed Lungs:CTA, no wheezing or crackles Cardiac: normal S1/S2, no murmur Abd: ND, soft, mild ttp of the suprapubic area, + CVA tenderness on the L side MSk: no LE edema Psych: AAOx3, normal affect A/P: Nephrolithiasis with L hydronephrosis: -CT abd: There are obstructing calculi in the distal left ureter at the level of the pelvic inlet. These measure up to 7 mm in aggregate dimension and cause mild left hydroureteronephrosis. - due to abnormal UA will start the pt on Cipro -will send UCx -urology consult ---- NPO after MN -flomax daily and prn pain med - IV maintenance fluids Other chronic conditions: plan as above Agree with A/P by Asmita Swartz PA-C
[2022-10-27] MEDS ORDERED: PROMETHAZINE HCL 12.5 MG in SODIUM CHLORIDE 0.9% 50 ML IV PRN (20:41)
[2022-10-27] MEDS ORDERED: ACETAMINOPHEN 325 MG TAB PO PRN (20:41)
[2022-10-27] MEDS ORDERED: POLYETHYLENE (MIRALAX) 17 GM PACK PO PRN (20:41)
[2022-10-27] MEDS ORDERED: HYDROmorphone INJ 0.5 MG/0.5 ML SYR IV PRN (20:41)
[2022-10-27] MEDS ORDERED: KETOROLAC TROMETHAMINE 15 MG/ML VIAL IV PRN (20:41)
[2022-10-27] MEDS: SERTRALINE HCL 100 MG TABLET PO SCH (22:12)
[2022-10-27] MEDS: SODIUM CHLORIDE 0.9% 1000ML 1,000 ML IV SCH (22:12)
[2022-10-27] MEDS: TAMSULOSIN HCL 0.4 MG CAP PO SCH (22:12)
[2022-10-27] MEDS: CIPROFLOXACIN / D5W 400 MG/200 ML BAG IV SCH (22:52)
[2022-10-28] MEDS: SODIUM CHLORIDE 0.9% 1000ML 1,000 ML IV SCH (06:25)
[2022-10-28 06:46] LABS: Hematocrit (blood only) 35.1 % (37.0-47.0); Hemoglobin 11.5 g/dl (12.0-16.0); Mean Corpuscular Hemoglobin 28.7 pg (25.0-34.0); Mean Corpuscular Hgb Conc 32.8 g/dL (32.0-36.0); Mean Corpuscular Volume 87.5 fL (80.0-100.0); Platelet Count 191 K/uL (130-400); RDW Coefficient of Variation 12.9 % (11.5-14.5); RDW Standard Deviation 41.4 fL (36.4-46.3); Red Blood Count 4.01 M/uL (4.20-5.40); White Blood Count 5.81 K/ul (4.8-10.8)
[2022-10-28 07:13] LABS: Anion Gap 5 (3-11); BUN Creatinine Ratio 28.3 (10-20); Blood Urea Nitrogen 17 mg/dl (6-23); Calcium 8.5 mg/dl (8.6-10.3); Carbon Dioxide 26 mmol/L (21-32); Chloride 110 mmol/L (98-107); Creatinine Clr Calc Pharmacy 116.8 ml/min; Est GFR (African American) 114.8 ml/min; Est GFR (Non-African American) 99.1 ml/min; Glucose 90 mg/dl (70-99(Fasting)); Sodium 141 mmol/L (136-145)
[2022-10-28] MEDS: CIPROFLOXACIN / D5W 400 MG/200 ML BAG IV SCH ×2 (08:23→21:20)
[2022-10-28] MEDS: TOPIRAMATE 25 MG TAB PO SCH (08:23)
--- NOTE | 2022-10-28 08:49 | Hospitalist Progress Note ---
Date of Service October 28, 2022 Assessment & Plan (1) Calculus of distal left ureter: (2) Hydronephrosis of left kidney: (3) Abdominal pain: Plan: (4) Migraine: (5) Depression: Plan Patient is 62-year-old female with PMHx significant for migraine, depression, kidney stones who presented to ER with complaint of abdominal pain x 1 day and hematuria noted 2 days ago. Admitted with left hydroureteronephrosis in the setting of obstructing calculi. Abdominal Pain/Hydroureteronephrosis CT abdomen pelvis: noted obstructing calculi in the distal left ureter at the level of the pelvic inlet with mild left hydroureteronephrosis, concern for superimposed UTI. On IV Cipro, flomax scheduled, IV fluids, continue Toradol, Dilaudid as needed pain Straining all urine Currently NPO, appreciate Urology recs Migraines Pt requesting medication this AM for a migraine States she takes Excedrin migraine at home, rizatriptan prescribed as well On topamax for prevention One dose of rizatriptan ordered for headache Depression Continue sertraline DVT Prophylaxis: SCDs in anticipation of procedure Diet: Currently NPO in anticipation of procedure. Full Code Follows with Dr Franck Alfaro in [place] for routine care Admission and Anticipated Discharge Date Admission Date: October 27, 2022 Subjective Pt seen this AM. States Urology had not been in yet, unsure of the plan. Notes a migraine headache, takes excedrin migraine or rizatriptan at home to help. States pain is more central in the abdomen, comes and goes. Review of Systems Review of Systems: All systems reviewed & are unremarkable except as noted in Subjective Physical Exam Physical Exam: General: Alert, oriented. No acute distress Psych: Appropriate mood and affect Neuro: No gross deficits on exam HEENT: NC/AT CV: RRR, Normal s1, s2. No murmurs appreciated Resp: Breath sounds clear bilaterally, no increased effort of breathing. Abdomen: Soft, nontender on exam at this time Results & Data Results & Data Vital Signs (Past 12 Hours) Vital Signs Temp Pulse Resp BP Pulse Ox O2 Del Method 10/28/22 07:04 36.4 C L 80 16 108/67 96 Room Air 10/27/22 22:12 Room Air 10/27/22 22:12 Room Air 10/27/22 21:49 36.7 C 66 16 128/76 98 Room Air
[2022-10-28] MEDS ORDERED: SUMAtriptan succinate 50 MG TAB PO ONE (08:51)
[2022-10-28] MEDS ORDERED: RIZATRIPTAN BENZOATE 10 MG TAB PO ONE ×2 (08:52→16:25)
--- NOTE | 2022-10-28 08:58 | Urology Consultation ---
Date of Consultation October 28, 2022 Assessment & Plan (1) Calculus of distal left ureter: (2) Hydronephrosis of left kidney: (3) Staghorn calculus: (4) Abdominal pain: Plan Patient admitted with obstructing left ureteral stone and likely partial staghorn of the lower pole of the left kidney. Patient was undergoing supportive care. Has had issues with stones in the past. Previous had to go under intervention out of the area. Patient has been visiting for the [facility]. His currently living in [place]. Patient had ongoing issues with pain has been in the due to poorly controlled pain and ongoing issues. Vitals are stable with blood pressure 108/67. Pulse was 80. Temp 36.4. Is satting 96% on room air. Patient's vitals and labs were all reviewed. Please see full report for full values.. Values include white count of 5.1. Creatinine 0.6. Patient's hemog lobin was 11.5. Reviewed extensively different options. Discussed patient's imaging. Imaging was reviewed interpreted by myself. CT scan showing obstructing stone on the left with hydronephrosis and large stone in the left renal pelvis. Has additional small stones in the right kidney. No major obstruction on the right. Patient has been tolerating medications for control of discomfort as well as IV hydration and supportive care. Discussed options for conservative measure and maximum expulsion medical therapy and symptom controlled. Discussed ESWL. Discussed Ureteroscopy with extraction and/or laser lithotripsy. Risks and benefits were discussed. Stone free rates were also discussed as well as possibility of multiple procedures. Ureteral stents were discussed as well as post-operative issues and pain management. All questions were answered. Risks and benefits discussed at length for procedure. These include bleeding, infection, injury to surrounding tissues or organs, and risks associated with anesthesia. Patient states understanding and agrees to proceed. Will sign consent and schedule. Discussed extensively the large stone burden on the left and likely need for intervention. Discussed utilization of stent to decompress system with plans for intervention on the multiple stones at the same time depending on how pat ient recovers and manages with the stent. Reviewed extensively different options. Patient does live outside the area. Will likely need to undergo her procedures for the stone treatment at another f acility when she gets back to her home area. Did discuss different options for management of ongoing issues with obstruction as well as management of pain discomfort. Reviewed extensively different options for supportive care. Plan for Cystoscopy with left stent. History of Present Illness Attending Physician: Elysia Mace MD History of Present Illness New consultation for patient with stone, discomfort, obstruction, and ill feelings. Patient developed sudden onset of pain into flank going down and radiating into groin and back in waves comes and goes. Can be severe at times. Discussed and reviewed patient's family history for any history of stone disease . Also, discussed patient's medical surgery history especially related to any history of urinary issues or stone disease. Patient was admitted and is undergoing observation. Allergies Allergy/AdvReac Type Severity Reaction Status Date / Time Penicillins Allergy Unknown Hives Verified 08/26/20 09:49 Home Medications Medication Instructions Recorded Confirmed Type multivitamin 1 tab PO DAILY 03/29/19 10/27/22 History rizatriptan 10 mg disintegrating 10 mg PO UD PRN migraine headache 03/31/20 10/27/22 History tablet topiramate 25 mg tablet 25 mg PO DAILY #90 tabs 06/07/20 10/27/22 Rx sertraline 100 mg tablet 100 mg PO QPM #90 tabs 12/20/20 10/27/22 Rx Patient History Medical History Acute medial meniscus tear of left knee Cervical cancer HX OF 1993/ HYSTERECTOMY Depression Family history of reaction to anesthesia BROTHER & SISTER - N/V History of kidney stones DX JAN 2020 - SOME REMAIN/ NO CURRENT PROBLEMS WITH Knee effusion, left Knee osteoarthritis Migraines Surgical History History of section History of colonoscopy History of hysterectomy Hx of cholecystectomy Family History Mother Breast cancer Uterine cancer Family/Other Rheumatoid arthritis Arthritis Crohn's disease Grandmother (Paternal) Rheumatoid arthritis Colorectal cancer Father Migraine Sister Rheumatoid arthritis Aunt Diabetes Social History Smoking Status: Never smoker Second Hand Exposure: No; Do You Dip or Chew Tobacco: No; Tobacco Cessation Education Requested by Patient: No Hx Alcohol Use: Yes Alcohol type: beer, wine and hard liquor Hx Substance Use: Yes Non-Prescribed Medications: Marijuana Last Used Substance Other:: last night Preferred Language: Italian Communication Ability: Effective Systems Analyst Required: No Beliefs That Will Affect Care: None marital status: Current Living Situation: Spouse Current Living Situation Comment: SON, AND FATHER current occupational status: employed Other Information That Helps Us Care for You: No Feels Safe at Home: Yes Safety Concerns: Feels Safe At This Time Assistive Devices: Glasses Review of Systems Review of Systems: All systems reviewed & are unremarkable except as noted in HPI & below Physical Exam Physical Exam: General: Alert and oriented x 3 in no acute distress. Patient is well nourished and well kept. HEENT: Normocephalic Atraumatic. Inspection normal. Cranial Nerves 2-12 Grossly intact. Nares are clear. Neck is supple. Normal inspection of face. Normal inspection of neck. Neurologic: No deficits on inspection. Baseline for motor function and sensory. Psychologic: Normal affect. Respiratory: Nonlabored. No use of accessory muscles. No tachypnea or dyspnea. Cardiovascular: No tachycardia Skin: [place] and Dry. No rashes or visible lesions. Extremities: Moving without issues. No motor deficits on inspection Lymphatics: No edema Abdomen: Soft Non-distended. No rebound or guarding. Results & Data Vital Signs (Past 12 Hours) Vital Signs Temp Pulse Resp BP Pulse Ox O2 Del Method 10/28/22 07:04 36.4 C L 80 16 108/67 96 Room Air 10/27/22 22:12 Room Air 10/27/22 22:12 Room Air 10/27/22 21:49 36.7 C 66 16 128/76 98 Room Air PG Care Time/CCT Total # of Minutes Spent Total Time Spent with Patient: Total time spent is greater than 50% in coordination of care (as documented) at patient's floor/unit and/or counseling patient: Coding Level of Care Code 52234 IN/OBS CONSULT LVL 5,80M Diagnoses Calculus of distal left ureter N20.1 Hydronephrosis of left kidney N13.30 Staghorn calculus N20.0 Abdominal pain R10.9
[2022-10-28] MEDS ORDERED: PROPOFOL IV EMULSION 10 MG/ML 20 ML VIAL IV ONE (10:20)
[2022-10-28] MEDS ORDERED: KETAMINE 50 MG/5 ML SYRINGE ONE (10:20)
[2022-10-28] MEDS ORDERED: LIDOCAINE 2% 2 ML VIAL/AMP(20MG/ML) INFIL ONE (10:20)
[2022-10-28] MEDS ORDERED: MIDAZOLAM HCL 1 MG/ML 2ML VIAL ONE (10:20)
[2022-10-28] MEDS ORDERED: fentaNYL citrate PF 100 MCG/2 ML VIAL ONE (10:20)
--- NOTE | 2022-10-28 10:33 | Anesthesiology Consultation ---
Date of Service October 28, 2022 Assessment & Plan Chart Review Chart Review: Acceptable Risk for Surgery and Patient NOT seen in Pre Admission Testing Consults Requested none ASA ASA2 Proposed Anesthesia Anesthesia Type: MAC Risk / Benefits Reviewed With: PT / POA / Parent / Guardian, Accepts Plan and Informed Consent Obtained History Surgery Operation Date: 10/28/22 14:00 Proposed Procedures p Cystoscopy with Left Ureteral Stent Insertion - Mello Sosa, DO Height/Weight Height: 5 ft 6 in Weight: 96.5 kg Allergies Allergy/AdvReac Type Severity Reaction Status Date / Time Penicillins Allergy Unknown Hives Verified 08/26/20 09:49 Medications Home Medications Medication Instructions Recorded Confirmed Last Taken multivitamin 1 tab PO DAILY 03/29/19 10/27/22 10/26/22 rizatriptan 10 mg disintegrating 10 mg PO UD PRN migraine headache 03/31/20 10/27/22 10/26/22 tablet topiramate 25 mg tablet 25 mg PO DAILY #90 tabs 06/07/20 10/27/22 10/26/22 sertraline 100 mg tablet 100 mg PO QPM #90 tabs 12/20/20 10/27/22 10/26/22 Active Medications Generic Name Dose Route Start Last Admin Trade Name Freq PRN Reason Stop Dose Admin Hydromorphone HCl 0.5 mg 10/27/22 20:41 10/28/22 09:38 Hydromorphone Inj 0.5 Mg/0.5 Ml Syr IV 11/10/22 20:40 0.5 mg Q6H PRN Administration Severe Pain (Scale 7, 8, 9,10) Ciprofloxacin 400 mg in 200 mls @ 100 mls/hr 10/27/22 21:00 10/28/22 08:23 Cipro / D5w IV 11/06/22 20:59 100 mls/hr Q12H DELORIS Administration Protocol Sodium Chloride 1,000 mls @ 125 mls/hr 10/27/22 20:41 10/28/22 06:25 Nss 1000ml IV 10/28/22 12:40 125 mls/hr .Q8H DELORIS Administration Ketorolac Tromethamine 15 mg 10/27/22 20:41 10/28/22 05:53 Ketorolac Tromethamine 15 Mg/Ml Vial IV 11/01/22 20:40 15 mg Q6H PRN Administration Mild-Mod Pain (Scale 1-6) Sertraline HCl 100 mg 10/27/22 21:00 10/27/22 22:12 Sertraline Hcl 100 Mg Tablet PO 11/26/22 20:59 100 mg QPM DELORIS Administration Tamsulosin HCl 0.4 mg 10/27/22 21:00 10/27/22 22:12 Tamsulosin Hcl 0.4 Mg Cap PO 11/26/22 20:59 0.4 mg HS DELORIS Administration Topiramate 25 mg 10/28/22 09:00 10/28/22 08:23 Topiramate 25 Mg Tab PO 11/27/22 08:59 25 mg DAILY DELORIS Administration Past Medical History Medical History Acute medial meniscus tear of left knee Cervical cancer HX OF 1993/ HYSTERECTOMY Depression Family history of reaction to anesthesia BROTHER & SISTER - N/V History of kidney stones DX JAN 2020 - SOME REMAIN/ NO CURRENT PROBLEMS WITH Knee effusion, left Knee osteoarthritis Migraines Past Family History Family History Mother Breast cancer Uterine cancer Family/Other Rheumatoid arthritis Arthritis Crohn's disease Grandmother (Paternal) Rheumatoid arthritis Colorectal cancer Father Migraine Sister Rheumatoid arthritis Aunt Diabetes Past Surgical History Surgical History History of section History of colonoscopy History of hysterectomy Hx of cholecystectomy Social History Smoking Status: Never smoker Do You Dip or Chew Tobacco: No Hx Alcohol Use: Yes Alcohol type: beer, wine and hard liquor alcohol intake frequency: a few times a month Hx Substance Use: Yes substance use type: marijuana Last Used Substance Other:: last night Physical Exam Vital Signs Last Vital Signs Temp 36.4 C L 10/28/22 07:04 Pulse 80 10/28/22 07:04 Resp 16 10/28/22 07:04 BP 108/67 10/28/22 07:04 Pulse Ox 96 10/28/22 07:04 O2 Del Method Room Air 10/28/22 07:04 Testing Laboratory Results 10/28/22 06:12 10/28/22 07:33 Urine Color Yellow 10/27/22 12:46 Urine Appearance Turbid (Clear) A 10/27/22 12:46 Urine pH 8.0 (4.5-7.5) H 10/27/22 12:46 Ur Specific [place] 1.012 (1.000-1.030) 10/27/22 12:46 Urine Protein Negative (Negative) 10/27/22 12:46 Urine Glucose (UA) Negative (Negative) 10/27/22 12:46 Urine Ketones Negative (Negative) 10/27/22 12:46 Urine Nitrite Negative (Negative) 10/27/22 12:46 Ur Leukocyte Esterase 2+ (Negative) H 10/27/22 12:46 Urine WBC (Auto) 5-10 /hpf (0-5) H 10/27/22 12:46 Urine RBC (Auto) >30 /hpf (0-4) H 10/27/22 12:46 U Hyaline Cast (Auto) 1-5 /lpf (0-5) 10/27/22 12:46 U Epithel Cells (Auto) 5-10 /lpf (0-5) H 10/27/22 12:46 Urine Bacteria (Auto) Negative (Negative) 10/27/22 12:46
[2022-10-28] MEDS ORDERED: fentaNYL citrate PF 100 MCG/2 ML VIAL IV PRN (10:35)
[2022-10-28] MEDS ORDERED: ePHEDrine sulfate 50 MG/ML AMP IV PRN (10:35)
[2022-10-28] MEDS ORDERED: ATROPINE SULFATE 0.1 MG/ML 10ML SYR IV PRN (10:35)
--- NOTE | 2022-10-28 11:41 | Operative Report ---
PG Post Operative Report Pre & Post Diagnosis Operation Date: 10/28/22 14:00 Pre-Op Diagnosis: (1) Calculus of distal left ureter (2) Hydronephrosis of left kidney (3) Staghorn calculus Post-Op Diagnosis: (1) Calculus of distal left ureter (2) Hydronephrosis of left kidney (3) Staghorn calculus I identified the patient and participated in the time-out.: Yes Procedure Operation Date: 10/28/22 14:00 Actual Procedures p Cystoscopy Left Retrograde Pyelogram, Left Urine Aspiration, and Left Ureteral Stent Insertion(Left) - Mello Sosa DO Surgeon Mello Sosa, II, DO Marketing Compliance Manager None Estimated Blood Loss 0 Findings Consistent with Post-Op Diagnosis Stent placed in good position. Very large Left renal Stone. Smaller stone on left mid ureter. Specimens None Drains 6 Fr x 26 Left Anesthesia Type MAC Complications none Disposition Disposition: Recovery Room Indications Patient with obstruction. Risks and benefits discussed at length. Description of Procedure Patient was consented and brought back to the operating room. Patient was placed under anesthesia in the supine position and moved to the dorsal lithotomy position. Patient was prepped and draped in the regular sterile fashion. A time out was completed. A 30degree Cystoscope was placed into the bladder and the entire bladder was examined. The UO's were identified. The UO was cannulized with a catheter, urine was aspirated, and a retrograde pyelogram was completed. A wire was then placed. With the wire in place, a 6 Fr Double J stent was placed. It was confirmed with fluoroscopy. With the stent in place, the bladder was emptied. The scope was removed. The patient was cleaned, aroused from anesthesia, and transferred to the pacu in stable condition having tolerated the procedure well with no complications. I was present and participated in all aspects of the procedure. The patient will be monitored in the PACU until transferred. Plan to maintain stent for 1-2 weeks with plan to followup in office with [employer] to set up stone procedure. I attest to the content of the Intraoperative Record and any orders documented therein. Any exceptions are noted below.
--- NOTE | 2022-10-28 11:45 | Fluoroscopy Report ---
FL retrograde includes kub CLINICAL HISTORY: LT STENT COMPARISON STUDY: None. FLUOROSCOPY TIME: 11 seconds FLUOROSCOPY IMAGES: 2 Ka,r: 2.3 mGy FINDINGS: Only the distal left ureteral stent is identified and appears in good position. There is re sidual contrast within the distal left ureter. IMPRESSION: Fluoroscopic assistance as above. ACT 112: Negative or not required by law. Electronically signed by: Gregor Self M.D. 10/28/2022 11:43 AM
--- NOTE | 2022-10-28 12:44 | Anesthesiology Progress Note ---
Date of Service October 28, 2022 Anesthesia Post Procedure Vital Signs Vital Signs: Temp Pulse Pulse Resp BP BP Pulse Ox 10/28/22 12:00 36.6 C 58 L 17 124/68 98 10/28/22 11:50 55 L 12 116/60 97 10/28/22 11:42 37.1 C 63 15 117/55 L 97 10/28/22 07:04 36.4 C L 80 16 108/67 96 10/27/22 22:12 10/27/22 22:12 10/27/22 21:49 36.7 C 66 16 128/76 98 10/27/22 20:41 36.7 C 66 16 128/76 98 10/27/22 18:00 54 L 18 95 10/27/22 15:00 96 10/27/22 13:04 52 L 16 95 O2 Del Method 10/28/22 12:00 Room Air 10/28/22 11:50 Room Air 10/28/22 11:42 Room Air 10/28/22 07:04 Room Air 10/27/22 22:12 Room Air 10/27/22 22:12 Room Air 10/27/22 21:49 Room Air 10/27/22 20:41 Room Air 10/27/22 18:00 Room Air 10/27/22 15:00 Room Air 10/27/22 13:04 Room Air Transfer of Care Handoff Completed per policy Notes Mental Status: alert / awake / arousable Patient Amnestic to Procedure: Yes Nausea / Vomiting: adequately controlled Pain: adequately controlled Airway Patency, RR, SpO2: stable & adequate BP & HR: stable & adequate Hydration State: stable & adequate Anesthetic Complications: no major complications apparent and Pt Satisfied with anesthetic care
[2022-10-28] MEDS ORDERED: PHENAZOPYRIDINE HCL 200 MG TAB PO PRN (16:24)
[2022-10-28] MEDS: SERTRALINE HCL 100 MG TABLET PO SCH (21:20)
[2022-10-28] MEDS: TAMSULOSIN HCL 0.4 MG CAP PO SCH (21:20)
[2022-10-29 07:53] LABS: Basophils # (auto) 0.04 K/uL (0.00-0.20); Basophils % (auto) 0.7 %; Eosinophils # (auto) 0.34 K/uL (0.00-0.50); Eosinophils % (auto) 5.6 %; Hematocrit (blood only) 35.7 % (37.0-47.0); Hemoglobin 11.8 g/dl (12.0-16.0); Immature Granulocytes # (auto) 0.02 K/uL (0.01-0.20); Immature Granulocytes % (auto) 0.3 %; Lymphocytes # (auto) 1.51 K/uL (1.20-3.40); Mean Corpuscular Hemoglobin 28.8 pg (25.0-34.0); Mean Corpuscular Hgb Conc 33.1 g/dL (32.0-36.0); Mean Corpuscular Volume 87.1 fL (80.0-100.0); Mean Platelet Volume 9.9 fL (9.4-12.4); Monocytes # (auto) 0.48 K/uL (0.11-0.59); Monocytes % (auto) 7.9 %; Neutrophils # (auto) 3.66 K/uL (1.40-6.50); Neutrophils % (auto) 60.5 %; Platelet Count 193 K/uL (130-400); RDW Coefficient of Variation 12.9 % (11.5-14.5); RDW Standard Deviation 40.9 fL (36.4-46.3); White Blood Count 6.05 K/ul (4.8-10.8)
[2022-10-29] MEDS ORDERED: RIZATRIPTAN BENZOATE 10 MG TAB PO ONE (08:30)
--- NOTE | 2022-10-29 08:31 | Hospitalist Progress Note ---
Date of Service October 29, 2022 Assessment & Plan (1) Calculus of distal left ureter: (2) Hydronephrosis of left kidney: (3) Abdominal pain: Plan: (4) Migraine: (5) Depression: Plan Patient is 62-year-old female with PMHx significant for migraine, depression, kidney stones who presented to ER with complaint of abdominal pain x 1 day and hematuria noted 2 days ago. Admitted with left hydroureteronephrosis in the setting of obstructing calculi. Abdominal Pain/Hydroureteronephrosis CT abdomen pelvis: noted obstructing calculi in the distal left ureter at the level of the pelvic inlet with mild left hydroureteronephrosis, concern for superimposed UTI. On IV Cipro, flomax scheduled, IV fluids, continue Toradol, Dilaudid as needed pain Straining all urine Currently NPO, appreciate Urology recs Migraines Pt requesting medication this AM for a migraine States she takes Excedrin migraine at home, rizatriptan prescribed as well On topamax for prevention One dose of rizatriptan ordered for headache Depression Continue sertraline DVT Prophylaxis: SCDs in anticipation of procedure Diet: Currently NPO in anticipation of procedure. Full Code Follows with Dr Franck Alfaro in [place] for routine care Admission and Anticipated Discharge Date Admission Date: October 27, 2022 Results & Data Results & Data Vital Signs (Past 12 Hours) Vital Signs Temp Pulse Resp BP Pulse Ox O2 Del Method 10/29/22 07:53 36.8 C 54 L 16 114/78 97 Room Air 10/29/22 03:00 36.9 C 65 18 107/66 95 Room Air 10/28/22 21:20 Room Air 10/28/22 23:22 37.0 C 55 L 16 111/69 94 Room Air Laboratory Results Short CBC 10/29/22 Range/Units 07:32 WBC 6.05 (4.8-10.8) K/ul Hgb 11.8 L (12.0-16.0) g/dl Hct 35.7 L (37.0-47.0) % Plt Count 193 (130-400) K/uL Medications Administered Current Inpatient Medications Acetaminophen (Acetaminophen 325 Mg Tab) 650 mg PO Q4H PRN PRN Reason: pain/fever Stop: 11/26/22 20:40 Hydromorphone HCl (Hydromorphone Inj 0.5 Mg/0.5 Ml Syr) 0.5 mg IV Q6H PRN PRN Reason: Severe Pain (Scale 7, 8, 9,10) Stop: 11/10/22 20:40 Last Admin: 10/28/22 09:38 Dose: 0.5 mg Ciprofloxacin (Cipro / D5w) 400 mg in 200 mls @ 100 mls/hr IV Q12H DELORIS; Protocol Stop: 11/06/22 20:59 Last Infusion: 10/28/22 23:27 Dose: Infused Promethazine HCl 12.5 mg/ (Sodium Chloride) 50.5 mls @ 202 mls/hr IV Q6H PRN PRN Reason: Nausea And Vomiting Stop: 11/26/22 20:40 Last Infusion: 10/28/22 17:30 Dose: Infused Ketorolac Tromethamine (Ketorolac Tromethamine 15 Mg/Ml Vial) 15 mg IV Q6H PRN PRN Reason: Mild-Mod Pain (Scale 1-6) Stop: 11/01/22 20:40 Last Admin: 10/28/22 05:53 Dose: 15 mg Phenazopyridine HCl (Phenazopyridine Hcl 200 Mg Tab) 200 mg PO TID PRN PRN Reason: Dysuria Stop: 11/27/22 16:23 Last Admin: 10/28/22 17:55 Dose: 200 mg Polyethylene Glycol (Polyethylene (Miralax) 17 Gm Pack) 17 gm PO DAILY PRN PRN Reason: Constipation Stop: 11/26/22 20:40 Rizatriptan Benzoate (Rizatriptan Benzoate 10 Mg Tab) 10 mg PO ONCE ONE Stop: 10/29/22 08:31 Sertraline HCl (Sertraline Hcl 100 Mg Tablet) 100 mg PO QPM DELORIS Stop: 11/26/22 20:59 Last Admin: 10/28/22 21:20 Dose: 100 mg Tamsulosin HCl (Tamsulosin Hcl 0.4 Mg Cap) 0.4 mg PO HS DELORIS Stop: 11/26/22 20:59 Last Admin: 10/28/22 21:20 Dose: 0.4 mg Topiramate (Topiramate 25 Mg Tab) 25 mg PO DAILY DELORIS Stop: 11/27/22 08:59 Last Admin: 10/28/22 08:23 Dose: 25 mg
[2022-10-29] MEDS: TOPIRAMATE 25 MG TAB PO SCH (08:40)
[2022-10-29] MEDS: CIPROFLOXACIN / D5W 400 MG/200 ML BAG IV SCH (08:40)
[2022-10-29 08:45] LABS: Anion Gap 5 (3-11); BUN Creatinine Ratio 22.9 (10-20); Blood Urea Nitrogen 16 mg/dl (6-23); Calcium 8.9 mg/dl (8.6-10.3); Carbon Dioxide 27 mmol/L (21-32); Chloride 108 mmol/L (98-107); Creatinine Clr Calc Pharmacy 100.1 ml/min; Est GFR (African American) 109.1 ml/min; Est GFR (Non-African American) 94.2 ml/min; Glucose 88 mg/dl (70-99(Fasting)); Sodium 140 mmol/L (136-145)
[2022-10-29] MEDS ORDERED: CIPROFLOXACIN 500 MG TAB PO SCH (09:00)
--- NOTE | 2022-10-29 10:29 | Urology Progress Note ---
Date of Service October 29, 2022 Assessment & Plan (1) Staghorn calculus: (2) Hydronephrosis of left kidney: (3) S/P ureteral stent placement: Plan: - Pt POD#1 s/p Cystoscopy Left Retrograde Pyelogram, Left Urine Aspiration, and Left Ureteral Stent Insertion - Doing well, progressing as expected - Afebrile, lab work reviewed - creatinine 0.70, WBC 6.05 - Urine culture and kidney aspirate pending - Tolerating left ureteral stent with minimal bother - Okay to d/c from perspective when medically stable - Recommend d/c with course of empiric antibiotics, follow cultures - Recommend PO Tamsulosin, prn Pyridium, prn Oxybutynin and prn pain medication for stent management - Expected clinical course reviewed, all questions answered - Will arrange follow-up with our service to discuss definitive stone management - She lives in [place] and july f/u there for stone treatment - will sign off Admission and Anticipated Discharge Date Admission Date: October 27, 2022 Subjective Patient seen and examined at bedside this morning, chart reviewed present No acute issues overnight Reports left flank discomfort with voiding Voiding spontaneously Hematuria post procedure, no dysuria Denies nausea, vomiting, fever or chills Review of Systems Constitutional: as per Subjective / HPI Gastrointestinal: as per Subjective / HPI Genitourinary: as per Subjective / HPI Physical Exam Physical Exam: General: well-appearing, no acute distress HEENT: Normocephalic, mucous membranes moist Pulmonary: Nonlabored respirations Abdomen: Nondistended Extremities: Moves all 4 spontaneously Neuro: No gross deficits Psych: alert and oriented, normal mood Skin: Warm, dry, no rashes noted Results & Data Vital Signs (Past 12 Hours) Vital Signs Temp Pulse Resp BP Pulse Ox O2 Del Method 10/29/22 07:53 36.8 C 54 L 16 114/78 97 Room Air 10/29/22 03:00 36.9 C 65 18 107/66 95 Room Air 10/28/22 23:22 37.0 C 55 L 16 111/69 94 Room Air PG Care Time/CCT Total # of Minutes Spent Total Time Spent with Patient: Total time spent is greater than 50% in coordination of care (as documented) at patient's floor/unit and/or counseling patient: Coding Level of Care Code 46951 SUB INP/OBS CARE 1/25MIN Diagnoses Staghorn calculus N20.0 Hydronephrosis of left kidney N13.30 S/P ureteral stent placement Z96.0
--- NOTE | 2022-10-29 12:27 | Discharge Summary ---
Discharge Summary Date of Service October 29, 2022 Notes For Next Care Provider L ureteral stent placed on 10/28/[address] Mello Sosa, [facility], [place], [place] Please refer to local urology group for definitive stone management Medication Changes From Visit NEW Tamsulosin 0.4mg PO qHS NEW Cipro 500mg PO BID x 5 days NEW Ibuprofen 800mg PO TID PRN mod pain NEW Percocet 5/325, 1 tab PO q8h PRN severe pain NEW Pyridium 200mg PO TID PRN bladder spasms NEW oxybutinin 5mg PO BID PRN bladder spasms/stent pain Admission HPI Per Admitting Provider Patient is 62-year-old female with PMH migraine, depression, kidney stones presented to ER with complaint of abdominal pain x 1 day. 2 days ago thought had some blood in urine. Started increasing fluids and hasn't noticed any other hematuria since. Yesterday started with lower abdominal cramping. Today had some aching in lower back also. Today increased abdominal pain and cramping. Denies dysuria, urinary frequency, urinary retention, fever/chills, diaphoresis, N/V/D/C, MAYO, dizziness, CP, SOB, weakness, extremity edema, rashes. Principal Dx & Hospital Course #1 = Principal Diagnosis (1) S/P ureteral stent placement: (2) Staghorn calculus: (3) Calculus of distal left ureter: (4) Hydronephrosis of left kidney: (5) Abnormal finding on urinalysis: Plan The patient is a 62-year-old female who presented with bilateral lower quadrant and suprapubic abdominal pain that began the evening prior to arrival. Work-up included a CT abdomen pelvis with IV contrast revealing a 7 mm obstructing stone in the distal left ureter with mild left hydronephrosis. She also had a 2.4 cm calculus in the left renal pelvis. The case was discussed with Dr. Sosa the on-call urologist. Urinalysis was negative for bacteria but noted to have positive leuk esterase and white blood cells. She was started on intravenous Rocephin in the ER. She was admitted to the medicine service for further treatment. On 10/28 she underwent a cystoscopy with left retrograde pyelogram, left urine aspiration and left ureteral stent insertion by Dr. Sosa. She had a normal expected recovery with expected postoperative bladder spasms and slight hematuria. While in the hospital she developed a migraine and was treated twice with rizatriptan, her home medication. This resolved the migraines successfully. At time of discharge she was tolerating p.o. She was hemodynamically stable and afebrile and symptoms were managed with oral medications. She was mentating and ambulating at baseline. She was discharged in stable condition with close primary care follow-up recommended. Ultimately she will need the stent removed along with definitive stone management. Recommend urology follow-up in her local area in [place]. Another option is for her to follow-up with the [facility] urology group who treated her here in [facility]. These options were explained to her and she and her both verbalized understanding with intent to comply. At time of discharge her urine culture was still pending. She was empirically placed on a short course of ciprofloxacin. Updated Medication List Medication Instructions Recorded Confirmed Type multivitamin 1 tab PO DAILY 03/29/19 10/27/22 History rizatriptan 10 mg disintegrating 10 mg PO UD PRN migraine headache 03/31/20 10/27/22 History tablet topiramate 25 mg tablet 25 mg PO DAILY #90 tabs 06/07/20 10/27/22 Rx sertraline 100 mg tablet 100 mg PO QPM #90 tabs 12/20/20 10/27/22 Rx ciprofloxacin HCl 500 mg tablet 500 mg PO BID #10 tabs 10/29/22 Rx ibuprofen 800 mg tablet 800 mg PO Q8H PRN moderate pain 10/29/22 Rx (scale score 5-6) #30 tabs oxybutynin chloride 5 mg tablet 5 mg PO BID PRN bladder 10/29/22 Rx spasms/flank pain #30 tabs oxycodone-acetaminophen 5 mg-325 1 tab PO Q8H PRN severe pain 10/29/22 Rx mg tablet (Percocet) (scale score 7-10) #10 tabs phenazopyridine 200 mg tablet 200 mg PO TID PRN bladder pain #30 10/29/22 Rx (Pyridium) tabs tamsulosin 0.4 mg capsule 0.4 mg PO HS #30 caps 10/29/22 Rx Hospital Stay Data Consultations 10/27/22 18:09 ED Decision to Admit Stat 10/27/22 20:41 Consult Urology Routine Procedures Performed Operation Date: 10/28/22 14:00 Actual Procedures p Cystoscopy Left Retrograde with Left Ureteral Stent Insertion(Left) - Mello Sosa, Diagnostic Imagining Performed 10/27/22 12:37 CT abd pelvis IV con only Stat 10/28/22 09:00 FL retrograde includes kub Routine Pending Results Patient Have Any Pending Studies at Discharge: Yes Discharge Instructions Given to Patient (Per Discharging Provider) Please take all medications as instructed on discharge as below. You are being given Pyridium to help with bladder pain. You may take this every 8 hours consistently for a few days. This may help with the discomfort when you urinate. If you still have additional pain with urination or flank pain, please use the oxybutynin as needed. You will also remain on tamsulosin scheduled w hich should be continued daily until definitive stone management. You are being discharged with a short course of empiric antibiotics. Urine cultures are pending at time of discharge. Please check with primary care doctor for follow- up on the results of these. A stent is present in your left ureter which will ultimately need to be removed. Please follow-up with the urologist in your local area for definitive management of your kidney stone. Follow-up with your primary care doctor is recommended within 1 week of discharge from the hospital to ensure you are still doing well and the medications are working to control your symptoms. It was a pleasure taking care of you! Please call if you have any questions or problems. You can reach a [facility] hospitalist on duty at [facility] 24 hours a day by calling [phone]. Take care of yourself. Ngozi Melendez, [facility] Angeles[facility] Total Time Total Time Spent Total Time Spent (In Minutes): 60
== END 2022-10-29 12:43 | disposition home or self-care (01) | DRG 661 ==
LOC: ED 12:03 → 3N 18:33 → SUATTDRO 18:33 → 3N 20:34